=== PATIENT | female | born 1955 | race Caucasian/White ===

== ENCOUNTER 2023-01-07 07:47 | Observation (INO) | payer MEDICARE ==
[2023-01-06 11:47] LABS: BASOPHILS # (AUTO) 0.1 (0.0-0.1); BASOPHILS % 1.4 % (0.0-1.0); EOSINOPHILS # (AUTO) 0.7 (0.0-0.4); EOSINOPHILS % 7.9 % (0.0-6.0); HEMATOCRIT 39.1 % (34.2-44.1); HEMOGLOBIN 12.5 g/dL (12.0-16.0); LYMPHOCYTES % 33.7 % (18.0-39.1); MEAN CORPUSCULAR HEMOGLOBIN 30.6 pg (28-32); MEAN CORPUSCULAR VOLUME 95.6 fL (81-99); MONOCYTES # (AUTO) 0.8 (0.2-0.8); NEUTROPHILS # (AUTO) 4.3 (2.1-6.9); NEUTROPHILS % 47.6 % (38.7-80.0); PLATELET COUNT 389 x10e3/uL (140-360); RED BLOOD COUNT 4.09 x10e6/uL (3.6-5.1); RED CELL DISTRIBUTION WIDTH 15.3 % (11.7-14.4)
[2023-01-06 11:57] LABS: INR 0.82; PROTHROMBIN TIME 11.8 seconds (11.9-14.5)
[2023-01-06 12:07] LABS: ANION GAP 13.4 mmol/L (8-16); CALCIUM 9.7 mg/dL (8.4-10.2); CREATININE, SERUM 0.8 mg/dL (0.57-1.11); POTASSIUM 4.4 mmol/L (3.5-5.1)
[~2023-01-07] VITALS: Ht 157.5 cm; Wt 49.4 kg
[~2023-01-07 07:47] MED LIST: ACETAMINOPHEN 1000 MG/100 ML 100 ML IV ONE; ARIMIDEX1 MG PO; ASPIRIN81 MG PO; BUPIVACAINE 0.5%/EPI 30 ML SDV INJ ONE; CLOPIDOGREL75 MG PO; LACTATED RINGER'S 1,000 ML ONE; LOSARTAN POTASS25 MG PO; NABUMETONE; NEURONTIN100 MG PO; SODIUM CHLORIDE 0.9% 250ML 250 ML ONE; SUGAMMADEX SODIUM 200 MG/2 ML VIAL IV ONE; THROMBIN FOR SOLN 5,000 UNIT VIAL ONE; TRAMADOL HCL50 M1; TRELEGY ELLIPT1 EAC1 INH; Vancomycin IV 1 GM VIAL ONE; Z.0.DIFLUNISAL500 MG; Z.0.LEVAQUIN500 MG; Z.0.PREDNISONE20 MG; ZETIA10 MG PO; [UNRECOGNIZED DRUG - OTHER]
[2023-01-07] MEDS ORDERED: ZOLPIDEM TARTRATE 5 MG TAB PO PRN (09:00)
[2023-01-07] MEDS ORDERED: LOSARTAN POTASSIUM 25 MG TAB PO SCH (09:00)
[2023-01-07] MEDS ORDERED: MORPHINE SULFATE 5 MG/ML VIAL IM PRN (09:00)
[2023-01-07] MEDS ORDERED: ONDANSETRON HCL INJ 2MG/ML 2ML 2 MG/ML VIAL IV PRN (09:00)
[2023-01-07] MEDS ORDERED: CEPACOL SORE THROAT LOZENGES PO PRN (09:00)
[2023-01-07] MEDS ORDERED: ACETAMINOPHEN 325 MG TAB PO PRN (09:00)
[2023-01-07] MEDS ORDERED: HYDROMORPHONE 2MG/ML 2 MG/ML ML IV PRN (09:00)
[2023-01-07] MEDS ORDERED: MAGNESIUM/ALUMINUM/SIMETHICONE 30 ML UDC PO PRN (09:00)
[2023-01-07] MEDS ORDERED: PROMETHAZINE HCL (IM) 25 MG/ML VIAL IM PRN (09:00)
[2023-01-07] MEDS ORDERED: EZETIMIBE 10 MG TAB PO SCH (09:00)
[2023-01-07] MEDS ORDERED: ANASTROZOLE 1 MG TAB PO SCH (09:00)
[2023-01-07] MEDS ORDERED: FENTANYL CITRATE/PF 100MCG/2 ML INJ ONE ×2 (10:24→14:10)
[2023-01-07] MEDS ORDERED: FENTANYL CITRATE/PF 100MCG/2 ML INJ IV ONE (10:25)
[2023-01-07] MEDS ORDERED: CARISOPRODOL 350 MG TAB ONE (13:05)
[2023-01-07] MEDS ORDERED: CARISOPRODOL 350 MG TAB PO ONE (13:05)
[2023-01-07] MEDS ORDERED: POVIDONE IODINE 0.05% 0.05 % ML PO ONE (13:17)
[2023-01-07] MEDS ORDERED: LIDOCAINE HCL 2% LOCAL INJ 5 ML SDV VIAL INJ ONE (13:17)
[2023-01-07] MEDS ORDERED: ONDANSETRON HCL INJ 2MG/ML 2ML 2 MG/ML VIAL ONE (13:17)
[2023-01-07] MEDS ORDERED: EPHEDRINE SULFATE INJ 50 MG/ML VIAL ONE (13:17)
[2023-01-07] MEDS ORDERED: KETOROLAC TROMETHAMINE 30 MG/ML VIAL ONE (13:17)
[2023-01-07] MEDS ORDERED: SEVOFLURANE INHAL SOLN 250 ML PEN BTL ONE (13:17)
[2023-01-07] MEDS ORDERED: PROPOFOL IV EMULSION 10 MG/ML 20 ML VIAL ONE (13:17)
[2023-01-07] MEDS ORDERED: ROCURONIUM BROMIDE 10 MG/ML 5ML VIAL IV ONE (13:17)
[2023-01-07] MEDS ORDERED: DEXAMETHASONE SOD PHOS INJ 4 MG/ML SDV ONE (13:17)
[2023-01-07 16:00] VITALS: BP 118/65; PULSE 76; RESP 22; TEMP 98.3; O2SAT 96
[2023-01-07] MEDS: OXYCODONE/ACETAMINOPHEN 5-325 1 EACH TABLET PO PRN ×2 (16:04→21:43)
[2023-01-07] MEDS: CARISOPRODOL 350 MG TAB PO PRN (16:04)
[2023-01-07 16:18] VITALS: BP 118/65; PULSE 76; RESP 22; TEMP 98.3; O2SAT 96
[2023-01-07 16:40] VITALS: BP 118/65; PULSE 76; RESP 22; TEMP 98.3; O2SAT 96
[2023-01-07 20:00] VITALS: BP 106/59; PULSE 72; RESP 16; TEMP 98.3; O2SAT 96; O2SAT 98
[2023-01-07] MEDS: GABAPENTIN 100 MG CAP PO SCH (20:25)
[2023-01-07] MEDS: Vancomycin IV 1 GM in SODIUM CHLORIDE 0.9% 250ML 250 ML IV SCH (20:26)
[2023-01-07] MEDS: LACTATED RINGER'S 1,000 ML IV SCH (20:26)
[2023-01-08] MEDS: LACTATED RINGER'S 1,000 ML IV SCH (04:01)
[2023-01-08] MEDS: OXYCODONE/ACETAMINOPHEN 5-325 1 EACH TABLET PO PRN ×2 (04:01→12:16)
[2023-01-08 07:44] VITALS: BP 117/61; PULSE 76; RESP 17; TEMP 98.5; O2SAT 96
[2023-01-08 08:02] VITALS: BP 117/61; PULSE 76; RESP 17; TEMP 98.5; O2SAT 96
[2023-01-08] MEDS: Vancomycin IV 1 GM in SODIUM CHLORIDE 0.9% 250ML 250 ML IV SCH (08:47)
[2023-01-08] MEDS: GABAPENTIN 100 MG CAP PO SCH (08:47)
[2023-01-08] MEDS: CARISOPRODOL 350 MG TAB PO PRN (12:16)
[2023-01-08 12:21] VITALS: BP 114/98; PULSE 72; RESP 18; TEMP 98.6; O2SAT 94
[2023-01-08] MEDS ORDERED: ONDANSETRON HCL 4 MG ORAL DISINTEGRATING TAB PO PRN (13:00)
== END 2023-01-08 13:26 | disposition home or self-care (01) ==
LOC: OR 07:47 → PACU V 10:57 → MED/SURG3 13:43
PROVIDERS: ADMIT Neurological Surgery; ATTEND Neurological Surgery
DX: M48.062 Spinal stenosis, lumbar region with neurogenic claudication (principal); I50.9 Heart failure, unspecified; Z20.822 Contact with and (suspected) exposure to COVID-19; E78.5 Hyperlipidemia, unspecified; K21.9 Gastro-esophageal reflux disease without esophagitis; K44.9 Diaphragmatic hernia without obstruction or gangrene; E03.9 Hypothyroidism, unspecified; I73.9 Peripheral vascular disease, unspecified; Z71.3 Dietary counseling and surveillance; Z88.0 Allergy status to penicillin; Z01.810 Encounter for preprocedural cardiovascular examination; Z01.812 Encounter for preprocedural laboratory examination; Z01.818 Encounter for other preprocedural examination; Z79.02 Long term (current) use of antithrombotics/antiplatelets; Z79.82 Long term (current) use of aspirin; Z79.899 Other long term (current) drug therapy; Z85.3 Personal history of malignant neoplasm of breast; Z85.118 Personal history of other malignant neoplasm of bronchus and lung; Z85.07 Personal history of malignant neoplasm of pancreas; Z92.3 Personal history of irradiation; Z87.891 Personal history of nicotine dependence; Z95.820 Peripheral vascular angioplasty status with implants and grafts
CPT/HCPCS: 0223U; 36415; 63047; 63048; 71046; 72020; 80048; 85025; 85610; 85730; 86850; 86900; 88304; 88311; 93005; 96361 ×2; G0378 ×2; J0131; J1100; J1885; J2001; J2405; J2704; J3010; J3370 ×2; J7050 ×2; J7121 ×2